=== PATIENT | female | born 1955 | race Caucasian/White ===

== ENCOUNTER 2020-05-18 09:40 | Outpatient (CLI) | payer MEDICARE, OTHER, SELFPAY ==
--- NOTE | 2020-05-18 09:45 | MM_ITS ---
WS: [id number] BILATERAL DIGITAL SCREENING MAMMOGRAPHY WITH CAD CLINICAL INFORMATION: SCREENING HISTORY: Screening mammogram. No current complaints. COMPARISON: None. TECHNIQUE: Bilateral CC and MLO views. FINDINGS: Scattered fibroglandular densities bilaterally. A few punctate calcifications. No suspicious focal ma ss, asymmetry, calcifications, or architectural distortion. No evidence of malignancy. MM/[place] [id number] IMPRESSION: BI-RADS: 2-Benign FOLLOW UP: 1 Year Follow-up Recommend return to annual screening mammography.
== END 2020-05-18 09:41 | disposition home or self-care (01) ==
LOC: RADSHAW 09:43
PROVIDERS: PCP Family Medicine; Visit Provider Family Medicine
DX: Z12.31 Encounter for screening mammogram for malignant neoplasm of breast (principal)
CPT/HCPCS: 77067

== ENCOUNTER → 2020-08-17 09:34 | Outpatient (BNVA) | payer MEDICARE, OTHER, SELFPAY | PROVIDERS: PCP Family Medicine; Referring Provider Family Medicine; Visit Provider Orthopaedic Surgery | DX: M25.562 Pain in left knee (principal); M25.561 Pain in right knee | CPT/HCPCS: 73560; 73565 ==

== ENCOUNTER 2020-08-24 08:53 | Outpatient (CLI) | payer MEDICARE, OTHER, SELFPAY ==
--- NOTE | 2020-08-24 09:04 | XR_ITS ---
WS: [id number] SCREENING DEXA SCAN [employer] [facility] CLINICAL INFORMATION: ASYMPTOMATIC MENOPAUSAL STATE COMPARISON: None. FINDINGS: The L1-L4 bone mineral density measures 0.993 g/cm2. This corresponds to a T score score of -1.6 and Z score of -0.3. Left femoral neck bone mineral density measures 0.958. This corresponds to a T score of -0.4 and Z sc ore of 0.6. Left forearm bone mineral density measures 0.883 with a T score 0.1 and Z score of 1.6 XR/XR DEXA axial skeleton* [id number] IMPRESSION: Osteopenia lumbar spine. Normal bone mineral density left femur and left forear m. Patient's FRAX calculated 10 year probability for major osteoporotic fracture i s 13.8 % and osteoporotic hip fracture is 1.3%.
== END 2020-08-24 08:54 | disposition home or self-care (01) ==
LOC: RADWPI 08:55
PROVIDERS: PCP Family Medicine; Visit Provider Family Medicine
DX: Z91.89 Other specified personal risk factors, not elsewhere classified (principal); Z78.0 Asymptomatic menopausal state; M85.88 Other specified disorders of bone density and structure, other site
CPT/HCPCS: 77080

== ENCOUNTER 2020-09-13 09:09 | Outpatient (CLI) | payer MEDICARE, OTHER, SELFPAY ==
--- NOTE | 2020-09-13 09:14 | MM_ITS ---
WS: [id number] Exam: [place] [id number] Date/Time of Exam: 09/13/2020 9:19 AM Reason For Exam: AXILLARY LYMPHADENOPATHY;RIGHT BREAST PAIN A right diagnostic mammogram is performed. CC, MLO, 90 degree lateral and MLO compression spot view a re included in this series. Comparison is made with routine screening mammogram performed 05/18/2020. No suspicious mass, architectural distortion or suspicious calcification noted in the right breast. T here are several scattered nodular densities present which have the appearance of small intramammary lymph nodes. A single fatty replaced right axillary lymph node is noted which has benign appearance. Scattered fibroglandular densities throughout the right breast. Recommendations: Regional ultrasound of the right axillary region recommended for further workup. MM/[place] [id number] IMPRESSION: 1. No suspicious new finding in the right breast that would suggest malignancy. BI-RADS Category 0. Need additional imaging evaluation.
--- NOTE | 2020-09-13 09:14 | US_ITS ---
WS: [id number] Exam: US breast RT complete [id number] Date/Time of Exam: 09/13/2020 9:48 AM Reason For Exam: AXILLARY LYMPHADENOPATHY;RIGHT BREAST PAIN The right axilla is targeted for ultrasound evaluation. There are several small intramammary lymph nodes visualized in the right axilla which have benign elijah earance. No suspicious mass or other significant finding identified with ultrasound. Recommendations: Continue yearly screening mammography. US/US breast RT complete [id number] IMPRESSION: 1. No suspicious mass or lymphadenopathy identified in the right axilla with ul trasound. 2. There are several small intramammary lymph nodes identified which have benig n appearance. BI-RADS Category 2 benign.
== END 2020-09-13 09:10 | disposition home or self-care (01) ==
LOC: RADSHAW 09:13
PROVIDERS: PCP Family Medicine; Visit Provider Registered Nurse
DX: R59.0 Localized enlarged lymph nodes (principal); N64.4 Mastodynia
CPT/HCPCS: 76641; 77065

== ENCOUNTER 2021-02-02 06:51 | Outpatient (CLI) | payer MEDICARE, OTHER, SELFPAY ==
--- NOTE | 2021-02-02 | US_ITS ---
WS: [id number] ULTRASOUND SOFT TISSUES RIGHT neck. HISTORY: SENSATION OF FOREIGN BODY IN NECK COMPARISON: None available. TECHNIQUE: 2-D and color Doppler imaging is submitted. Ultrasound is directed to the RIGHT neck in the area of interest and clinical concern. The soft tissu es are normal. No mass identified. No distortion of the soft tissue or cystic mass. There are a few s mall benign lymph nodes. US/US soft tissue/extremity [id number] IMPRESSION: Negative ultrasound RIGHT neck. Ultrasound is directed to the area of interest.
== END 2021-02-02 06:52 | disposition home or self-care (01) ==
LOC: US 06:52
PROVIDERS: PCP Family Medicine; Visit Provider Registered Nurse
DX: R19.8 Other specified symptoms and signs involving the digestive system and abdomen (principal); R05.9 Cough, unspecified
CPT/HCPCS: 76882

== ENCOUNTER 2021-02-23 09:09 | Outpatient (CLI) | payer MEDICARE, OTHER, SELFPAY ==
--- NOTE | 2021-02-23 09:17 | XR_ITS ---
WS: [id number] Right knee, 3 views, 02/23/2021 Clinical Data: CHRONIC PAIN OF R KNEE/KNEE CLICKING Comparison: AP both knees, 08/17/2020. Findings: No fractures or dislocations are seen. The joint spaces are normal. The patella is intact. The soft t issues are unremarkable. XR/XR knee RT 3V* [id number] Impression: Negative right knee. Kellgren-Scotty Classification: grade 0 (none): definite absence of x-ray nicola nges of osteoarthritis
== END 2021-02-23 09:10 | disposition home or self-care (01) ==
LOC: RAD 09:13
PROVIDERS: PCP Family Medicine; Visit Provider Nurse Practitioner Family
DX: M25.561 Pain in right knee (principal)
CPT/HCPCS: 73562

== ENCOUNTER 2021-08-02 09:28 | Outpatient (CLI) | payer MEDICARE, OTHER, SELFPAY ==
--- NOTE | 2021-08-02 09:31 | MM_ITS ---
WS: [id number] SCREENING DIGITAL BREAST TOMOSYNTHESIS MAMMOGRAM WITH CAD HISTORY: SCREEN COMPARISON: 09/13/2020, Bilateral CC and MLO with tomosynthesis and synthetic mammography submitted. Computer aided detection analyzed. Breast composition: There are scattered areas of fibroglandular density. In the LEFT retroareolar reg ion there is soft tissue thickening with mild distortion and spiculation measuring 6 mm. Recommend fu rther evaluation by ultrasound. The remaining breasts are negative. MM/[place] [id number] IMPRESSION: BI-RADS: 0-Incomplete: Need additional imaging evaluation FOLLOW UP: Need Additional Imaging Recommendation: LEFT breast ultrasound, limited. Ultrasound directed posterior to the LEFT nipple.
== END 2021-08-02 09:29 | disposition home or self-care (01) ==
LOC: RAD 09:29
PROVIDERS: PCP Family Medicine; Visit Provider Orthopaedic Surgery
DX: Z12.31 Encounter for screening mammogram for malignant neoplasm of breast (principal)
CPT/HCPCS: 77063; 77067

== ENCOUNTER 2021-08-23 14:29 | Outpatient (CLI) | payer MEDICARE, OTHER, SELFPAY ==
--- NOTE | 2021-08-23 14:46 | US_ITS ---
WS: [id number] ULTRASOUND LEFT BREAST HISTORY: ABNORMAL MAMMOGRAM OF L BREAST COMPARISON: 08/02/2021, 09/13/2020 TECHNIQUE: 2-D and Doppler. Ultrasound directed posterior to the LEFT nipple in the anterior breast. This a focal area of shadowi ng partially obscuring the adjacent soft tissues behind the nipple. This area measures 6 x 10 x 8 mm and corresponds to the mammographic abnormality. There is slight retraction of the nipple. Mild perip heral increased vascularity. US/US breast LT limited* [id number] IMPRESSION: BI-RADS: 4-Suspicious Finding-Biopsy Should Be Considered FOLLOW-UP: Biopsy Recommended Ultrasound-guided biopsy recommended spiculated mass posterior to the LEFT nipp le. Notified ELAINE Roberts at 08/23/2021 3:36 PM.
== END 2021-08-23 14:30 | disposition home or self-care (01) ==
PROVIDERS: PCP Family Medicine; Visit Provider Nurse Practitioner Family
DX: R92.8 Other abnormal and inconclusive findings on diagnostic imaging of breast (principal)
CPT/HCPCS: 76642

== ENCOUNTER → 2021-08-30 14:10 | Outpatient (BNVA) | payer MEDICARE, OTHER, SELFPAY | PROVIDERS: PCP Family Medicine; Visit Provider Surgery | DX: R92.8 Other abnormal and inconclusive findings on diagnostic imaging of breast (principal) | CPT/HCPCS: 99203 ==

== ENCOUNTER 2021-09-22 08:04 | Outpatient (CLI) | payer MEDICARE, OTHER, SELFPAY ==
--- NOTE | 2021-09-22 08:27 | US_ITS ---
WS: [id number] ULTRASOUND-GUIDED LEFT BREAST BIOPSY HISTORY: left breast mass COMPARISON: 08/23/2021 and 08/02/2021 Procedure, risks and complications are explained to the patient. Medications are reviewed. Consent is obtained. The mass in the LEFT breast is localized with ultrasound. Mass localizes to the anterior LEFT breast at 2:00. Skin is cleansed with ChloraPrep and anesthetized with 1% buffered lidocaine. Small dermatom e is made. Under sterile conditions mass is biopsied with a 14-gauge Achieve needle. Multiple core bi opsies are performed. Material placed in formalin and sent to pathology for review. No complications encountered. Breast tissue marker ([employer] ultrasound enhanced ribbon): Single. Patient left the radiology suite with no complications. Patient is instructed to return [place] [facility] [place] [facility] with any concerns. Note: Fat necrosis and neoplasm may appear similar on ultrasound. Biopsy obtained the necessary tissu e and was through the abnormality. With the pathologic diagnosis of fat necrosis this is likely a césar ign process. As similar imaging findings can be seen with neoplasm recommend 6 month follow-up. Alter natively this lesion could be surgically excised. US/[place] [id number] IMPRESSION: 1. Uncomplicated core needle biopsy LEFT breast mass at 2:00 near the areola. PATHOLOGY: Benign breast tissue with stromal sclerosis and focal fat necrosis. No malignancy. RECOMMENDATION: Diagnostic LEFT mammogram in 6 months and ultrasound. Versus cr rgical excisional biopsy.
== END 2021-09-22 08:05 | disposition home or self-care (01) ==
LOC: RAD 08:05
PROVIDERS: PCP Family Medicine; Visit Provider Nurse Practitioner Family
DX: N63.21 Unspecified lump in the left breast, upper outer quadrant (principal)
CPT/HCPCS: 19083; 88305

== ENCOUNTER → 2021-10-27 09:13 | Outpatient (BNVA) | payer MEDICARE, OTHER, SELFPAY | PROVIDERS: PCP Family Medicine; Visit Provider Surgery | DX: Z12.11 Encounter for screening for malignant neoplasm of colon (principal) | CPT/HCPCS: 99024; 99203 ==

== ENCOUNTER 2021-12-22 06:39 | Day surgery (SDC) | payer MEDICARE, OTHER, SELFPAY ==
[2021-12-20 12:37] VITALS: BMI 29.0
[2021-12-22 07:10] VITALS: BP 121/78; PULSE 64; RESP 18; TEMP 36.7; O2SAT 97
[2021-12-22] MEDS: sodium chloride 0.9% 1,000 ML 30 ML IV (07:24)
--- NOTE | 2021-12-22 08:12 | ANES.PREANE2 ---
Pre-Anesthetic Assessment Height/Weight: Height 1.57 m Weight 72.121 kg Temp Pulse Resp BP Pulse Ox O2 Del Method 98.0 F 64 18 121/78 97 12/22/21 07:10 12/22/21 07:10 12/22/21 07:10 12/22/21 07:10 12/22/21 07:10 12/22/21 07:10 Preop Diagnosis: Screening Operation Date: 12/22/21 08:15 Proposed Procedures p Colonoscopy 50468,Z12.11(Not Applicable) - Lv Wing, DO Was Beta Karma taken within 24 hours: N/A Was Clonidine taken within 24 hours: N/A Last intake: Intake Last Liquid Date 12/21/21 Last Liquid Time 22:00 Last Solid Date 12/20/21 Social No alcohol and No tobacco Exam alert, oriented x 3, clear to auscultation bilaterally and regular rate & rhythm Airway Submandibular: within normal limits Cervical ROM: within normal limits Mallampati: Class II Dentition: full History/ROS No significant history except as noted and No significant complaints Pulmonary None reported CV/HEM None reported None reported Hepatic None reported GI None reported Metabolic None reported Musc/skel None reported Neuropsych None reported Anesthetic Plan ASA status: 1 Anesthesia: MAC Risk of > 500 ml blood loss (7ml/kg in children): No Medications/Allergies Home Medications Medication Instructions Recorded Confirmed Last Taken Type atorvastatin 10 mg tablet 10 mg PO DAILY 08/17/20 12/22/21 12/22/21 05:15 History paroxetine HCl 20 mg tablet 20 mg PO DAILY 08/17/20 12/22/21 12/22/21 05:15 History ramipril 10 mg capsule 10 mg PO DAILY 08/17/20 12/22/21 12/21/21 History trazodone 50 mg tablet 50 mg PO DAILY 08/17/20 12/22/21 12/21/21 History aspirin 81 mg tablet,delayed 81 mg PO DAILY 08/30/21 12/20/21 12/19/21 History release Allergies Allergy/AdvReac Type Severity Reaction Status Date / Time No Known Allergies Allergy Verified 12/22/21 07:12 Current Medications Generic Name Dose Route Start Last Admin Trade Name Freq PRN Reason Stop Dose Admin Sodium Chloride 1,000 mls @ 30 mls/hr 12/22/21 07:00 12/22/21 07:24 Sodium Chloride 0.9% IV 12/23/21 06:59 30 mls/hr .Q24H CESAR Administration PFSH Anesthesia Medical History Anxiety Depression History of trigger finger left hand HTN (hypertension) Hx of transient ischemic attack (TIA) Hyperlipidemia Left breast mass Surgical History History of hysterectomy History of right hip replacement Hx of appendectomy Hx of carpal tunnel repair right wrist Hx of colonoscopy Family History Other Cancer Social History Smoking and tobacco status: never smoked History of recent travel: No Data Anesthesia Cardiac Studies: No Data to Display
--- NOTE | 2021-12-22 08:26 | PM.HP ---
Providers/Chief Complaint Chief Complaint: encounter for screening for malignant neoplasm History of Present Illness Annette Stacy is a 66 year old female here for colonoscopy Medications/Allergies Home Medications Medication Instructions Recorded Confirmed Last Taken Type atorvastatin 10 mg tablet 10 mg PO DAILY 08/17/20 12/22/21 12/22/21 05:15 History paroxetine HCl 20 mg tablet 20 mg PO DAILY 08/17/20 12/22/21 12/22/21 05:15 History ramipril 10 mg capsule 10 mg PO DAILY 08/17/20 12/22/21 12/21/21 History trazodone 50 mg tablet 50 mg PO DAILY 08/17/20 12/22/21 12/21/21 History aspirin 81 mg tablet,delayed 81 mg PO DAILY 08/30/21 12/20/21 12/19/21 History release Allergies Allergy/AdvReac Type Severity Reaction Status Date / Time No Known Allergies Allergy Verified 12/22/21 07:12 PFSH Acute PFSH: Medical History Anxiety Depression History of trigger finger left hand HTN (hypertension) Hx of transient ischemic attack (TIA) Hyperlipidemia Left breast mass Surgical History History of hysterectomy History of right hip replacement Hx of appendectomy Hx of carpal tunnel repair right wrist Hx of colonoscopy Family History Other Cancer Social History Smoking and tobacco status: never smoked History of recent travel: No Vitals/I&O/Wt Last Vital Signs Temp 98.0 F 12/22/21 07:10 Pulse 64 12/22/21 07:10 Resp 18 12/22/21 07:10 BP 121/78 12/22/21 07:10 Pulse Ox 97 12/22/21 07:10 O2 Del Method 12/22/21 07:10 Weight last 48 hrs Weight 159 lb A&P Assessment and plan (1) Colon cancer screening: Plan Colonoscopy Attestations Medical Necessity Statement*: Home Coding Level of Care Code Acute Melt Room Operator for Chg Fwd Diagnoses Colon cancer screening Z12.11
[2021-12-22 08:43] VITALS: BP 111/63; PULSE 63; RESP 16; TEMP 36.2; O2SAT 98
[2021-12-22 08:53] VITALS: BP 109/65; PULSE 62; RESP 16; O2SAT 97
--- NOTE | 2021-12-22 14:21 | ANE.PACU2 ---
Inpatient post-anesthesia follow up: Airway intact: Yes Vital signs: Temperature 97.2 F Pulse Rate 62 Respiratory Rate 16 Blood Pressure 109/65 Pulse Oximetry 97 Oxygen Delivery Me thod Room Air Oxygen Flow Rate 3 Fraction of Inspir ed Oxygen Hydration adequate: Yes Nausea and vomiting: No Pain level: 1 Mental status: Baseline
== END 2021-12-22 09:09 | disposition home or self-care (01) ==
PROVIDERS: Visit Provider Surgery
PROC: 0DJD8ZZ Inspection of Lower Intestinal Tract, Via Natural or Artificial Opening Endoscopic (ICD-10-PCS; CPT 45330; 2021-12-22 08:15)
DX: Z12.11 Encounter for screening for malignant neoplasm of colon (principal); Z80.0 Family history of malignant neoplasm of digestive organs; F41.9 Anxiety disorder, unspecified; F32.A Depression, unspecified; I10 Essential (primary) hypertension; Z86.73 Personal history of transient ischemic attack (TIA), and cerebral infarction without residual deficits; E78.5 Hyperlipidemia, unspecified
CPT/HCPCS: 45330; G0121; J2704; J7030